=== PATIENT | female | born 1995 | race Caucasian/White ===

== ENCOUNTER 2020-03-20 12:36 | Emergency (ER) | payer OTHER ==
[2020-03-20 13:38] LABS: HEMOGLOBIN 12.6 gm/dl (12.3-15.3); RED BLOOD COUNT 4.52 M/UL (4.00-5.10); WHITE BLOOD COUNT 10.9 K/UL (4.5-11.0)
[2020-03-20 13:56] LABS: BUN/CREATININE RATIO 11 (0-10)
[2020-03-20] MEDS ORDERED: MACROBID 100 M100 MG PO (15:46)
== END 2020-03-20 16:54 | disposition home or self-care (01) ==
LOC: ER1 12:36
PROVIDERS: Emergency Medicine
DX: O20.9 Hemorrhage in early pregnancy, unspecified (principal); Z3A.00 Weeks of gestation of pregnancy not specified
CPT/HCPCS: 76801; 80053; 81001; 84702; 85025; 86900; 86901; 87086; 99284

== ENCOUNTER → 2020-03-21 | Outpatient (CLI) | payer OTHER ==
[~2020-03-21] MED LIST: MACROBID 100 M100 MG PO
== END ==
LOC: LAB 12:28
DX: N93.8 Other specified abnormal uterine and vaginal bleeding (principal)
CPT/HCPCS: 36415; 84702

== ENCOUNTER 2020-11-09 15:56 | Inpatient (IN) | payer OTHER ==
[~2020-11-09] VITALS: Ht 149.9 cm; Wt 95.3 kg
[2020-11-09 17:01] LABS: HEMOGLOBIN 10.7 gm/dl (12.3-15.3); RED BLOOD COUNT 3.97 M/UL (4.00-5.10); WHITE BLOOD COUNT 11.1 K/UL (4.5-11.0)
[2020-11-09] MEDS ORDERED: GLUCOPHAGE 500500 MG PO (18:37)
[2020-11-10] MEDS ORDERED: DOCUSATE SODIU250 MG PO (15:06)
[2020-11-10] MEDS ORDERED: HYDROCODONE-AC1 EACH PO (15:06)
[2020-11-10] MEDS ORDERED: IBUPROFEN600 MG PO (15:06)
[2020-11-10] MEDS ORDERED: FEROSUL325 MG PO (15:06)
[2020-11-11 05:43] LABS: HEMOGLOBIN 8.9 gm/dl (12.3-15.3)
== END 2020-11-11 15:27 | disposition home or self-care (01) | DRG 788 ==
LOC: GENOP 15:56 → OB 16:30
PROVIDERS: Obstetrics & Gynecology; ADMIT Obstetrics & Gynecology
PROC: 10907ZC Drainage of Amniotic Fluid, Therapeutic from Products of Conception, Via Natural or Artificial Opening (ICD-10-PCS; 2020-11-10)
PROC: 3E033VJ Introduction of Other Hormone into Peripheral Vein, Percutaneous Approach (ICD-10-PCS; 2020-11-10)
PROC: 10D00Z1 Extraction of Products of Conception, Low, Open Approach (ICD-10-PCS; principal; 2020-11-10 12:10)
DX: O24.424 Gestational diabetes mellitus in childbirth, insulin controlled (principal); O99.214 Obesity complicating childbirth; O36.63X0 Maternal care for excessive fetal growth, third trimester, not applicable or unspecified; O99.02 Anemia complicating childbirth; D64.9 Anemia, unspecified; Z20.822 Contact with and (suspected) exposure to COVID-19; E66.01 Morbid (severe) obesity due to excess calories; G43.109 Migraine with aura, not intractable, without status migrainosus; O99.892 Other specified diseases and conditions complicating childbirth; Z37.0 Single live birth; Z3A.38 38 weeks gestation of pregnancy
CPT/HCPCS: 36415; 81001; 82800; 82962; 85014; 85018; 85025; 90471; C9113; J0690; J1170; J1885; J2274; J2370; J2405; J2590; J3010; J7030; J7120; U0002